=== PATIENT | female | born 1945 | race Caucasian/White ===

== ENCOUNTER 2016-10-21 09:52 | Emergency (ER) | payer MEDICARE, BC ==
[2016-10-21] MEDS ORDERED: oxyCODONE/Acetamin 5/325 MG* TAB PO ONE (10:36)
--- NOTE | 2016-10-21 12:16 | RAD ---
INDICATION: Evaluate for left axillary abscess COMPARISON: None TECHNIQUE: Transverse and longitudinal scans of the left axilla were performed utilizing grayscale and color Doppler imaging. FINDINGS: There is diffuse edema in the left axillary region with several tiny focal areas of decreased echogenicity. There is no dominant organized abscess. Small hypoechoic areas measure 1 cm or smaller. IMPRESSION:DIFFUSE CELLULITIC RESPONSE LEFT AXILLARY REGION POSSIBLE EARLY MICROABSCESS FORMATION.
[2016-10-21] MEDS ORDERED: Clindamycin CAP* 150 MG PO ONE (12:39)
[2016-10-21 13:38] VITALS: BP 99/44
--- NOTE | 2016-11-14 14:15 | ED ---
Skin Complaint - HPI Summary HPI Summary: Patient started with a small "pin prick" size redness under Right arm pit area four days ago. Two days later the area increased in size so she saw her PCP Dr. Soni and was placed on keflex. Since yesterday the area has doubled in size. She denies fever, chills, N/V/D or drainage from the area. - History of Current Complaint Chief Complaint: EDRashSkinAbscess Time Seen by Provider: 10/21/16 10:00 Stated Complaint: ABSCESS Hx Obtained From: Patient Onset/Duration: Started Days Ago Timing: Constant Onset Severity: Mild Current Severity: Moderate Pain Intensity: 2 Pain Scale Used: 0-10 Numeric Skin Location: Arm Character: Redness, Painful Aggravating Symptom(s): Touch Alleviating Symptom(s): Nothing Associated Signs & Symptoms: Tenderness - Allergy/Home Medications Allergies/Adverse Reactions: Allergies Allergy/AdvReac Type Severity Reaction Status Date / Time Ciprofloxacin [From Cipro] Allergy Unknown Verified 06/23/16 09:00 Reaction Details Digoxin Allergy Pain Verified 06/23/16 09:00 Gabapentin Allergy Unknown Verified 06/23/16 09:00 Reaction Details Hydrochlorothiazide Allergy Unknown Verified 06/23/16 09:00 [From Lopressor HCT] Reaction Details Raloxifene [From Evista] Allergy Unknown Verified 06/23/16 09:00 Reaction Details Metoprolol AdvReac Unknown Verified 06/23/16 09:00 [From Lopressor HCT] Reaction Details Pravastatin AdvReac Headache Verified 06/23/16 09:00 shrimp Allergy Unknown Uncoded 06/23/16 09:00 Reaction Details PMH/Surg Hx/FS Hx/Imm Hx Endocrine/Hematology History: Reports: Hx Diabetes Cardiovascular History: Reports: Hx Hypertension - ON MEDS Denies: Hx Pacemaker/ICD Respiratory History: Denies: Hx Asthma Musculoskeletal History: Denies: Hx Rheumatoid Arthritis, Hx Osteoporosis Sensory History: Denies: Hx Hearing Aid Psychiatric History: Denies: Hx Panic Disorder - Cancer History Hx Chemotherapy: No Hx Radiation Therapy: No - Surgical History Surgery Procedure, Year, and Place: HYSTERECTOMY, LT BREAST BIOPSY Infectious Disease History: No Infectious Disease History: Denies: Traveled Outside the [place] in Last 30 Days - Family History Known Family History: Positive: None - Social History Occupation: Retired Lives: With Family Alcohol Use: Occasionally Substance Use Type: Reports: None Hx Tobacco Use: No Smoking Status (MU): Never Smoked Tobacco Review of Systems Positive: Other - quarter size area of erythema on right armpit All Other Systems Reviewed And Are Negative: Yes Physical Exam Triage Information Reviewed: Yes Vital Signs On Initial Exam: Initial Vitals Temp Pulse Resp BP Pulse Ox 97.6 F 87 16 147/62 99 10/21/16 09:54 10/21/16 09:54 10/21/16 09:54 10/21/16 09:54 10/21/16 09:54 Vital Signs Reviewed: Yes Appearance: Positive: Well-Appearing, Well-Nourished, Pain Distress Skin: Positive: Warm, Skin Color Reflects Adequate Perfusion, Dry, Tender, Soft , Erythema @ - quarter size area of erythema with central enduration without fluctuance or drainage Head/Face: Positive: Normal Head/Face Inspection Eyes: Positive: EOMI, RICKY, Conjunctiva Clear ENT: Positive: Hearing grossly normal Neck: Positive: Supple, Nontender, No Lymphadenopathy Respiratory/Lung Sounds: Positive: Breath Sounds Present Cardiovascular: Positive: RRR Musculoskeletal: Positive: Strength/ROM Intact. Negative: Edema Left, Edema Right Neurological: Positive: Sensory/Motor Intact, Alert, Oriented to Person Place, Time, NV Bundle Intact Distally Psychiatric: Positive: Affect/Mood Appropriate AVPU Assessment: Alert Diagnostics - Vital Signs Vital Signs Temp Pulse Resp BP Pulse Ox 10/21/16 13:36 99.7 F 68 20 99/44 10/21/16 10:37 97.6 F 87 16 147/62 99 10/21/16 09:54 97.6 F 87 16 147/62 99 - Laboratory Lab Statement: Any lab studies that have been ordered have been reviewed, and results considered in the medical decision making process. Course/Dx - Course Course Of Treatment: Patient will be switched to an antibiotic that covers MRSA and discontinue keflex. - Differential Diagnoses - Skin Complaint Differential Diagnoses: Abscess, Cellulitis, Contact Dermatitis, Local Allergic Reaction, MRSA, Urticaria - Diagnoses Provider Diagnoses: Cellulitis Discharge - Discharge Plan Condition: Stable Disposition: HOME Prescriptions: Clindamycin Cap(NF) [Cleocin 300 mg Cap(NF)] 300 mg PO Q6H #39 cap Patient Education Materials: Cellulitis (ED) Referrals: Silke Soni MD [Primary Care Provider] - Additional Instructions: Take the antibiotics until they are completely gone. Follow-up with your primary care provider in 2 days for re-evaluation. Return to the emergency department if symptoms worsen.
== END 2016-10-21 13:56 | disposition home or self-care (01) ==
LOC: ED 09:52
DX: L03.111 Cellulitis of right axilla (principal)
CPT/HCPCS: 99282; A9270-GY

== ENCOUNTER 2017-07-08 10:05 | Emergency (ER) | payer MEDICARE, BC ==
[2017-07-08 10:36] VITALS: BP 134/63
--- NOTE | 2017-07-08 11:11 | UC ---
Skin Complaint HPI - HPI Summary HPI Summary: PT WAS BITTEN BY A TICK LEFT UPPER MEDIAL LEG SEVERAL WEEKS AGO. TOOK 200MG PROPHYLACTIC DOXY. SEVERAL DAYS AGO NOTICED A [employer]ARGET LIKE LESION AT TICK BITE SITE. FEELS WELL. NO FEVER, QUIROZ, MYALGIAS. - History of Current Complaint Chief Complaint: UCSkin Time Seen by Provider: 07/08/17 10:46 Stated Complaint: TICK BITE Hx Obtained From: Patient Onset/Duration: Gradual Onset, Lasting Days, Still Present Timing: Constant Onset Severity: Mild Current Severity: Mild Pain Intensity: 0 Pain Scale Used: 0-10 Numeric Location: Discrete - LEFT UPPER LEG MEDIALLY Character: Redness Aggravating Factor(s): Nothing Alleviating Factor(s): Nothing Associated Signs & Symptoms: Positive: Rash. Negative: Nausea, Fever, Cough, Throat Tightening, Drainage, Tenderness Related History: Possible Reaction to: Insect - Allergy/Home Medications Allergies/Adverse Reactions: Allergies Allergy/AdvReac Type Severity Reaction Status Date / Time Ciprofloxacin [From Cipro] Allergy Unknown Verified 07/08/17 10:29 Reaction Details Digoxin Allergy Pain Verified 07/08/17 10:29 Gabapentin Allergy Unknown Verified 07/08/17 10:29 Reaction Details Hydrochlorothiazide Allergy Unknown Verified 07/08/17 10:29 [From Lopressor HCT] Reaction Details Raloxifene [From Evista] Allergy Unknown Verified 07/08/17 10:29 Reaction Details Metoprolol AdvReac Unknown Verified 07/08/17 10:29 [From Lopressor HCT] Reaction Details Pravastatin AdvReac Headache Verified 07/08/17 10:29 shrimp Allergy Unknown Uncoded 07/08/17 10:29 Reaction Details Home Medications: Home Medications Flecainide TAB* [Tambocor TAB*] 07/08/17 [History] Rivaroxaban TAB(*) [Xarelto 10 mg (*)] 07/08/17 [History] metFORMIN* [Glucophage 1000 MG TAB *] 07/08/17 [History] Review of Systems Constitutional: Negative Skin: Rash Respiratory: Negative Cardiovascular: Negative Gastrointestinal: Negative All Other Systems Reviewed And Are Negative: Yes PMH/Surg Hx/FS Hx/Imm Hx Endocrine History: Diabetes Cardiovascular History: Hypertension, Atrial Fibrillation - Surgical History Surgical History: Yes Surgery Procedure, Year, and Place: HYSTERECTOMY, LT BREAST BIOPSY - Family History Known Family History: Positive: Hypertension - Social History Alcohol Use: Occasionally Substance Use Type: None Smoking Status (MU): Never Smoked Tobacco Physical Exam Triage Information Reviewed: Yes Appearance: Well-Appearing, No Pain Distress, Well-Nourished Vital Signs: Initial Vital Signs Temp 98.7 F 07/08/17 10:32 Pulse 77 07/08/17 10:32 Resp 16 07/08/17 10:32 BP 134/63 07/08/17 10:32 Pulse Ox 97 07/08/17 10:32 Vital Signs Reviewed: Yes Eyes: Positive: Conjunctiva Clear ENT: Positive: Hearing grossly normal Neck: Positive: Supple Respiratory: Positive: No respiratory distress, No accessory muscle use Cardiovascular: Positive: Pulses Normal Abdomen Description: Positive: Soft Musculoskeletal: Positive: No Edema Neurological: Positive: Alert Psychological: Positive: Age Appropriate Behavior Skin: Positive: rashes - 3.5 CM DIAMETER ERYTHEMATOUS LESION WITH CENTRAL CLEARING SURROUNDING TICK BITE SITE LEFT UPPER LEG Course/Dx - Diagnoses Provider Diagnoses: ERYTHEMA MIGRANS Discharge - Discharge Plan Condition: Stable Disposition: HOME Prescriptions: Doxycycline (Monohydrate) [Doxycycline Monohydrate] 1 cap PO BID #28 cap Patient Education Materials: Lyme Disease (ED) Referrals: Silke Soni MD [Primary Care Provider] - If Needed Additional Instructions: YOUR RASH IS SUSPICIOUS FOR AN ERYTHEMA MIGRANS RASH. SUCH WE WILL TREAT YOU TO COVER FOR LYME DISEASE. LYME DISEASE: You are suspected of having Lyme disease. Further testing may be necessary to confirm the diagnosis. Lyme disease is an infection spread through the bite of a deer tick. Symptoms include rash, fever, fatigue, joint swelling, and aches. Lyme disease can be treated with antibiotics. It is important that you take the entire course of medication. Call the physician if you develop severe headache, stiff neck, paralysis or "drooping" of either side of the face, or a worsening of any other symptom. The majority of patients with early Lyme disease who receive appropriate antibiotic therapy have complete resolution of the signs and symptoms of infection within 20 days and, in one trial, erythema migrans (the rash) and its associated symptoms resolved in a mean of five to six days. Patients who are more systemically ill at the beginning of treatment may take longer to recover. Some patients have mild subjective symptoms, such as headache, musculoskeletal pain, arthralgia, or fatigue, that persist for weeks to months after treatment. These subjective findings often resolve spontaneously, usually within six months , without further antibiotic therapy; they are not due to ongoing active Lyme disease. Almost all patients who have a satisfactory response to antibiotic therapy do well over the termite control representative. FOLLOW-UP WITH YOUR PCP IF NEEDED
== END 2017-07-08 11:11 | disposition home or self-care (01) ==
LOC: UCEAST 10:05
DX: A26.0 Cutaneous erysipeloid (principal); E11.9 Type 2 diabetes mellitus without complications; I10 Essential (primary) hypertension; I48.91 Unspecified atrial fibrillation; Z88.3 Allergy status to other anti-infective agents; Z91.013 Allergy to seafood; Z79.84 Long term (current) use of oral hypoglycemic drugs
CPT/HCPCS: 99212; G0463